=== PATIENT | male | born 1935 | race Caucasian/White ===

== ENCOUNTER 2017-05-14 16:27 | Emergency (ER) | payer MEDICARE, OTHER ==
[~2017-05-14] VITALS: Ht 167.6 cm; Wt 70.0 kg
[~2017-05-14 16:27] MED LIST: ASPIRIN ADULT L81 MG; ASPIRIN81 MG PO; BABY ASPIRIN81 MG OR; BACTRIM DS1 TAB OR; CIPRO XR500 M1 PO; DEBROX6.5 % AU; DOXYCYC MONO100 MG OR; FLOMAX0.4 M1 PO; FLULAVAL IM; GABAPENTIN300 MG PO; LORTAB 5/3255 MG PO; METOPROL TAR25 MG PO; PLAVIX75 MG PO
[2017-05-14] MEDS ORDERED: AMIODARONE200 MG PO (16:53)
[2017-05-14] MEDS ORDERED: AMLODIPINE5 MG PO (16:54)
[2017-05-14] MEDS ORDERED: ATORVASTATIN CA10 MG PO (16:55)
[2017-05-14] MEDS ORDERED: LASIX 20 MG TAB20 MG PO (16:58)
[2017-05-14] MEDS ORDERED: FE TABS325 MG PO (16:58)
[2017-05-14] MEDS ORDERED: DUONEB IN (17:01)
[2017-05-14] MEDS ORDERED: LISINOPRIL40 MG PO (17:02)
[2017-05-14] MEDS ORDERED: LOPRESSOR50 M1 PO (17:03)
[2017-05-14] MEDS ORDERED: MILK OF MAG30 ML/UDC PO (17:04)
[2017-05-14] MEDS ORDERED: PROTONIX40 M2 PO (17:04)
[2017-05-14] MEDS ORDERED: TAMSULOSIN HCL0.4 MG PO (17:06)
[2017-05-14] MEDS ORDERED: TYLENOL325 MG PO (17:09)
[2017-05-14 17:14] LABS: HEMOGLOBIN 10.1 g/dl (14.0-18.0); IMMATURE GRANULOCYTES 0.8 % (0.0-1.0); MEAN CELL VOLUME 105.1 fL CALC (80.0-100.0); MEAN CORPUSCULAR HGB 34.2 pG CALC (26.0-32.0); MEAN CORPUSCULAR HGB CONC 32.6 g/L CALC (32.0-36.0); NEUT# 22.04 thou/uL (1.82-7.42); RED BLOOD COUNT 2.95 mill/uL (4.70-6.10); RED CELL DISTRI WIDTH 16.9 % (11.5-15.5)
[2017-05-14 17:28] LABS: PROTHROMBIN TIME 10.5 SECONDS (9.0-12.5)
[2017-05-14 17:32] LABS: ALBUMIN 3.1 g/dL (3.2-5.0); ALKALINE PHOSPHATASE 59 u/l (38-126); ANION GAP 14 (6-22 (CALC)); BILIRUBIN, TOTAL 1.7 mg/dL (0.0-1.4); BUN 52 mg/dL (8-23); BUN/CREATININE RATIO 47 (12-20 (CALC)); CALCIUM 8.2 mg/dL (8.4-10.2); CARBON DIOXIDE 26 mmol/l (22-30); CHLORIDE 101 mmol/l (95-108); CREATININE 1.1 mg/dL (0.7-1.3); GFR > 60 ML/MIN (>=60 (CALC)); GFR FOR AFR.AMER. > 60 ML/MIN (>=60 (CALC)); GLUCOSE 124 mg/dL (82-115); POTASSIUM 4.4 mmol/l (3.5-5.1); SGOT/AST 35 u/l (19-48); SGPT/ALT 49 u/l (11-66); SODIUM 136 mmol/l (137-146); TOTAL PROTEIN 5.7 g/dL (6.3-8.2)
[2017-05-14 17:43] LABS: MYOGLOBIN 182 ng/mL (0 - 121)
[2017-05-14 18:06] LABS: URINE BLOOD DIPSTICK MODERATE (NEGATIVE); URINE CLARITY CLEAR; URINE COLOR YELLOW; URINE GLUCOSE - DIPSTICK NEGATIVE (NEGATIVE); URINE KETONE TRACE mg/dL (NEGATIVE); URINE LEUK ESTERASE NEGATIVE (NEGATIVE); URINE NITRITE - DIPSTICK NEGATIVE (Negative); URINE PROTEIN - DIPSTICK 30 mg/dL (NEG-TRACE); URINE SPECIFIC GRAVITY 1.025
[2017-05-14 18:10] LABS: URINE BILIRUBIN - DIPSTICK NEGATIVE (NEGATIVE)
[2017-05-14 18:18] LABS: URINE WBC 0-2 WBC/hpf (0-5)
[2017-05-14 20:22] VITALS: BP 110/54
== END 2017-05-14 20:23 | disposition short-term general hospital (02) ==
LOC: ED 16:27
PROVIDERS: Emergency Medicine
DX: I21.4 Non-ST elevation (NSTEMI) myocardial infarction (principal); D72.829 Elevated white blood cell count, unspecified; Z96.641 Presence of right artificial hip joint; Z95.1 Presence of aortocoronary bypass graft; Z79.82 Long term (current) use of aspirin; R00.2 Palpitations; R53.1 Weakness
CPT/HCPCS: J1650